=== PATIENT | female | born 1975 | race Caucasian/White ===

== ENCOUNTER → 2019-04-24 | Outpatient (CLI) | payer OTHER ==
[2019-04-24 13:55] LABS: BILIRUBIN,URINE NEGATIVE (NEG); CLARITY,URINE CLEAR; COLOR,URINE YELLOW; NITRITE,URINE NEGATIVE (NEG); PROTEIN,URINE NEGATIVE (NEG-TRACE); UROBILINOGEN,URINE 0.2 mg/dL (0.2 mg/dL)
[2019-04-24 14:06] LABS: BACTERIA,URINE FEW /HPF (0-FEW); RBC,URINE OCC /HPF (0-2); SQUAMOUS EPITHELIAL CELL,UR MANY /LPF; WBC,URINE RARE /HPF (0-4)
[2019-04-24 15:04] LABS: BASO # 0.1 x10^3/uL (0.0-0.2); BASO % 1 % (0-3); EOS # 0.2 x10^3/uL (0.0-0.7); EOS % 3 % (0-3); HEMATOCRIT 39.5 % (36.0-47.0); HEMOGLOBIN 13.5 g/dL (12.0-15.5); LYMPH % 29 % (24-48); MEAN CORPUSCULAR HEMOGLOBIN 28 pg (25-35); MEAN CORPUSCULAR HGB CONC 34 g/dL (31-37); MEAN CORPUSCULAR VOLUME 83 fL (79-100); MONO # 0.5 x10^3/uL (0.0-1.1); MONO % 8 % (0-9); NEUT % 59 % (31-73); PLATELET COUNT 305 x10^3/uL (140-400); RED BLOOD COUNT 4.75 x10^6/uL (3.50-5.40); RED CELL DISTRIBUTION WIDTH 13.3 % (11.5-14.5); WHITE BLOOD COUNT 6.7 x10^3/uL (4.0-11.0)
[2019-04-24 15:31] LABS: ALBUMIN 3.8 g/dL (3.4-5.0); CALCIUM 9.1 mg/dL (8.5-10.1); CREATININE 0.7 mg/dL (0.6-1.0); GFR 90.5; POTASSIUM 3.7 mmol/L (3.5-5.1); TOTAL BILIRUBIN 0.3 mg/dL (0.2-1.0); TOTAL PROTEIN 7.5 g/dL (6.4-8.2)
== END | disposition home or self-care (01) ==
LOC: SURGPAT 13:35
PROVIDERS: ATTEND Obstetrics & Gynecology
DX: Z01.818 Encounter for other preprocedural examination (principal); D25.9 Leiomyoma of uterus, unspecified; N92.4 Excessive bleeding in the premenopausal period
CPT/HCPCS: 36415; 80053; 81001; 85025

== ENCOUNTER 2019-04-26 05:42 | Observation (INO) | payer OTHER ==
[~2019-04-26] VITALS: Ht 162.6 cm; Wt 87.0 kg
[2019-04-26] MEDS ORDERED: ONDANSETRON PF 4 MG/2 ML VIAL. ONE (06:33)
[2019-04-26] MEDS ORDERED: LIDOCAINE 2% PF 5 ML VIAL. ONE (06:33)
[2019-04-26] MEDS ORDERED: PROPOFOL 20 ML IV ONE (06:33)
[2019-04-26] MEDS ORDERED: ROCURONIUM 50 MG/5 ML VIAL. ONE ×2 (06:33→11:48)
[2019-04-26] MEDS ORDERED: DEXAMETHASONE SOD PHOS 4 MG/ML VIAL ONE (06:33)
[2019-04-26] MEDS ORDERED: fentaNYL PF VIAL 100 MCG/2 ML VIAL IV PRN ×2 (07:00)
[2019-04-26] MEDS ORDERED: IV RINGERS,LACTATED 1000ML 1,000 ML IV SCH (07:00)
[2019-04-26] MEDS ORDERED: HYDROmorphone 2 MG/ML VIAL IV PRN (07:00)
[2019-04-26] MEDS ORDERED: PROCHLORPERAZINE 10 MG/2 ML VIAL. IV PRN (07:00)
[2019-04-26] MEDS ORDERED: ONDANSETRON PF 4 MG/2 ML VIAL. IV PRN ×2 (07:00→13:00)
[2019-04-26] MEDS ORDERED: MORPHINE SULFATE 2 MG/ML VIAL. IV PRN ×2 (07:00→13:00)
[2019-04-26] MEDS ORDERED: ESTROGENS, CONJ VAGINAL CREAM 30GM TUBE. ONE (07:19)
[2019-04-26] MEDS ORDERED: BUPIVACAINE-EPI 0.25%-1:200000 MPF 30 ML VIAL. ONE (07:19)
[2019-04-26] MEDS ORDERED: INDIGOTINDISULFONATE SODIUM 40 MG/5 ML AMPUL. ONE (07:20)
[2019-04-26] MEDS ORDERED: SUCCINYLCHOLINE 200 MG/10 ML VIAL. ONE (07:24)
[2019-04-26] MEDS ORDERED: fentaNYL PF VIAL 100 MCG/2 ML VIAL ONE ×3 (07:25→09:17)
[2019-04-26] MEDS ORDERED: MIDAZOLAM HCL/PF 2 MG/2 ML VIAL. ONE (07:25)
[2019-04-26] MEDS ORDERED: GLYCOPYRROLATE 1 MG/5 ML VIAL. ONE (07:58)
[2019-04-26] MEDS ORDERED: NEOSTIGMINE METHYLSULFATE 5 MG/5 ML SYRINGE. ONE (07:59)
[2019-04-26] MEDS ORDERED: KETOROLAC 30 MG/ML VIAL. ONE (08:03)
[2019-04-26] MEDS ORDERED: ePHEDrine PF IN SALINE 50 MG/10 ML SYRINGE. IV ONE (08:50)
[2019-04-26] MEDS ORDERED: ceFAZolin 2GM PREMIX 2 GM/50 ML BAG IV ONE (09:00)
[2019-04-26] MEDS ORDERED: SEVOFLURANE > 120 MINUTES. IH ONE (09:11)
[2019-04-26] MEDS ORDERED: ESMOLOL 100 MG/10 ML VIAL. IVP ONE (10:19)
[2019-04-26] MEDS ORDERED: HYDROmorphone 2 MG/ML VIAL ONE (12:01)
[2019-04-26] MEDS ORDERED: PHENYLEPHRINE in 0.9% NACL PF 1 MG/10 ML SYRINGE. IV ONE (12:02)
--- NOTE | 2019-04-26 12:58 | PDOC ---
BRIEF OPERATIVE NOTE Date: Apr 26, 2019 Pre-Op Diagnosis menorrhagia, dysmenorrhea Post-Op Diagnosis same plus a fibroid and extensive pelvic adhesive disease Procedure Performed LAVH/LSO/right salpingectomy/extensive adhesiolysis > 3hrs on adhesions alone Surgeon Dr. Philomena Blnaca Drain Cleaner OSVALDO Nation Anesthesiologist Dr. Benedict Anesthesia Type: General Blood Loss 200cc IV Fluid 1700cc Urine Output 600cc clear via loera catheter Specimens Obtained cervix, uterus, left tube and ovary, right tube Findings uterus adhesed thickly to anterior abdominal wall, enlarged left tube like hydrosalpinx, colon adhesed to left sidewall, left IP ligament, left ovary and left pelvic sidewall, bladder adhesed to anterior abdominal wall, normal right tube/ovary, normal appearing appendix and RUQ, fibroid on right, anterior, fundal part of uterus Complications none Operative Note [id number] PHILOMENA BLANCA MD Apr 26, 2019 12:58
[2019-04-26] MEDS ORDERED: ZOLPIDEM 5 MG TABLET. PO PRN (13:00)
[2019-04-26] MEDS ORDERED: SIMETHICONE 80 MG TAB.CHEW PO PRN (13:00)
[2019-04-26] MEDS ORDERED: 0.9 % SODIUM CHLORIDE 10 ML DISP.SYRIN. IV PRN (13:00)
[2019-04-26] MEDS ORDERED: CALCIUM CARBONATE 500 MG TAB.CHEW PO PRN (13:00)
[2019-04-26] MEDS ORDERED: diphenhydrAMINE HCL 25 MG CAPSULE PO PRN (13:00)
[2019-04-26] MEDS ORDERED: LACTULOSE 20 GM/30 ML SOLUTION. PO PRN (13:00)
[2019-04-26] MEDS ORDERED: MAGNESIUM HYDROXIDE 2,400 MG/30 ML ORAL.SUSP. PO PRN (13:00)
[2019-04-26] MEDS ORDERED: MAG HYDROX/ALUMINUM HYD/SIMETH 30 ML ORAL.SUSP PO PRN (13:00)
[2019-04-26] MEDS ORDERED: HYDROcodone/APAP 5/325MG 1 TAB TABLET PO PRN (13:00)
[2019-04-26] MEDS ORDERED: diphenhydrAMINE 50 MG/ML VIAL IV PRN (13:00)
[2019-04-26] MEDS ORDERED: NALOXONE 0.4 MG/ML VIAL. IV PRN (13:00)
[2019-04-26] MEDS: HYDROmorphone 2 MG/ML VIAL IV PRN ×4 (13:31→14:01)
--- NOTE | 2019-04-26 14:35 | OP ---
DATE OF SURGERY: 04/26/2019 PREOPERATIVE DIAGNOSES: Menorrhagia, dysmenorrhea. POSTOPERATIVE DIAGNOSES: Menorrhagia, dysmenorrhea with fibroid and extensive pelvic adhesive disease. PROCEDURES: Laparoscopic-assisted vaginal hysterectomy, left salpingo-oophorectomy, right salpingectomy, extensive adhesiolysis, greater than 3 hours alone was spent on adhesions alone. She had both bowel adhesions to the sidewall, to the left infundibulopelvic ligament, to the left ovary and the left pelvic sidewall with all adhesed as well as the uterus was completely scarred to the anterior abdominal wall with the bladder behind it, so greater than 3 hours alone was spent on the adhesions. SURGEON: John Blanca MD FUR BLOWING MACHINE OPERATOR: Frank Maradiaga criminal legal assistant. ANESTHESIOLOGIST: Dr. Benedict. ANESTHESIA: General. ESTIMATED BLOOD LOSS: 200 mL. URINE OUTPUT: 600 mL clear via Portillo catheter. INTRAVENOUS FLUIDS: 1700 mL of Crystalloid. SPECIMENS: Cervix, uterus, left tube and ovary, right tube. FINDINGS: She had the uterus that was thickly scarred and adhesed to the anterior abdominal wall with the bladder behind it. She had an enlarged left tube like a hydrosalpinx and she had scarring all along the left sidewall with colon adhesed to the sidewall, the left infundibulopelvic ligament, the left ovary and the left pelvic sidewall as well. Of course, the bladder was scarred behind the uterus likely from her 4 prior sections and told she had a uterine window and then she had a normal right tube and ovary and a visually normal appendix and a grossly normal right upper quadrant or liver edge. COMPLICATIONS: None. DESCRIPTION OF PROCEDURE: This patient was taken to the operating room where general anesthesia was placed. The patient was placed in the dorsal lithotomy position in [facility]. The patient's abdomen and vagina were both prepped and draped in the normal sterile fashion and a Portillo catheter had been inserted under sterile technique prior to my arrival. Upon my arrival, a timeout was performed in which everyone agreed on the patient, the procedure and she had received her preoperative antibiotics and a Portillo catheter was indeed in place. Once this was all agreed upon, a bivalve speculum was placed in the patient's vagina. A single-tooth tenaculum was used to grasp the anterior lip of the cervix. A 12 mL of 0.25% Marcaine with epinephrine was used to circumferentially inject around the cervix for both hemodissection and hemostatic purposes later. The [employer] Prototype uterine manipulator was placed through the endocervical os, locked on the single tooth tenaculum and the bivalve speculum was then removed. Top gloves were discarded and changed. Attention was then turned to the abdomen where a supraumbilical skin incision was made with the scalpel. A curved Ana was used to dissect through the subcuticular layer to the fascia. The 5 mm Visiport was used to directly into the abdominal cavity. Direct abdominal placement was confirmed via the laparoscope. Opening patient pressure was 3-4 mmHg. The patient was placed in Trendelenburg position. The overhead lights were dimmed and the right lower quadrant port was placed under direct visualization transilluminating the abdominal wall, finding an area clear of any vasculature, making a small incision and placing the 5 mm disposable trocar under direct visualization without difficulty. A 4-5 mL of air was placed in the trocar cuff. The scope was then moved to this port to look the umbilical port. It was in with no adhesions so the trocar cuff was also filled with the 4-5 mL of air here. The left lower quadrant was placed under direct visualization exactly the same as the right. Finding an area clear of any adhesions which they were not warranted any here by transilluminating the abdominal wall, making a small incision in the abdomen and placing the trocar under direct visualization and filling the trocar cuff with 4-5 mL of air. At this point, all the above findings were seen with the most significant thing being the left-sided adhesions and the uterus firmly adhesed to the anterior abdominal wall. So, I started on the left, I was able to take down the bowel pretty easily off the sidewall. I was able to grasp the left tube and ovary and peeled the bowel off the left ovary. I then had to peel it off the infundibulopelvic ligaments so we could identify the ureter, which I was actually able to find. I could see the distal part on the other side of the pelvic adhesion, but I needed to see the proximal part because she wanted to retain one ovary since the left tube and ovary looked more scarred and swollen like the hydrosalpinx on this side. I decided to leave her normal right ovary and take the scarred left ovary. So I worked on taking down the adhesions on the left side, once I was able to identify the ureter crossing over the IP ligament and diving deep into the pelvis. I was able to stay high on the IP ligament and take out the swollen left tube as well with hydrosalpinx, crossing the left infundibulopelvic ligament with the LigaSure, cauterizing and cutting, taking the left tube and ovary. I was able to cross the left round ligament as well. The uterus was still scarred at this point, but I was able to take down this and obtain blood supply, so I just went one step trying to secure the blood supply the whole time. The right tube and ovary were normal. I was able to identify the ureter, but they were normal so I went above the ovary below the tube, doing a right salpingectomy and then crossing the right round ligament and the right uterine ovarian pedicle, so leaving the unilateral ovary and taking unilateral ovary. At this point, I was able to especially on the left see around the adhesions and I was able to come out it from the side and below, so I made sure I was not just going through anteriorly and not knowing if that bladder was behind it. So, it took several times and I kept going around it from one side to the other, but instead of approaching it straight on from the fundus down, not knowing where that bladder would be after 4 cesareans, so that is what took so long, just approaching it and then I used the suction as blunt dissection once I would score it, I would take down some blunt hemodissection and then looked around and came out it from the other side and do it again, so it took a long time to work on this anterior abdominal wall adhesion. After going through the round ligament on the left side and starting the anterior abdominal wall adhesions see the bladder flap on this side, I could watch it come up so i still want to go at it straight on, but i was able to push in vaginally on the cervix and uterus and elongate that cervix and go down that side obtaining the uterine vessels and going down to the uterosacral so I was able to skeletonize and obtain the blood supply on the left side of the uterus before I started working on the adhesions, which was very helpful. Once I was able to get further on the right side, I was able to see the uterines on this side as well. There was a fibroid obscuring the view on this side initially, but I was able to skeletonize and almost peel off and almost remove it, it was still attached, but the fibroid, so I could get below it and see where the uterines were and I was able to get the uterines on this side as well. At this point, the uterus was completely blanched, posteriorly I was free. I was just still stuck anteriorly. Left side was free, posterior looked good. I just was still stuck anteriorly. So I still took my time taking it down, but I had the uterine vessels on both sides and once I was able to then keep going from each side. Once the right side was taken down, I took a little bites through the cardinal and broad ligaments down to the level of the uterosacral on the right side as well. Again, uterus blanching completely free in the back and on the sides just still working on that anterior adhesion until eventually I was able to get around it and just cut the rest of it, the whole anterior surface of the uterus and I mean whole anterior surface looked like raw hamburger meat and had been stuck to the anterior abdominal wall. Once it was free, there was no active bleeding and I took pictures of everything and all instruments were removed and attention was turned down below. The single tooth had already kind of come off during the manipulation, it was removed. Weighted speculum was placed in the patient's vagina. Thyroid Faustina clamps were placed on the anterior and posterior lips of the cervix respectively. A scalpel was used to make a circumferential incision in the cervix. Posterior cul-de-sac was easily and sharply entered with curved Asher scissors. A #0 Vicryl stitch was used to secure the posterior peritoneum here to the vaginal cuff and tagged with a curved Ana clamp and the needle was cut and passed off. The short weighted vaginal speculum was removed and replaced with the long weighted Milvia speculum in the posterior cul-de-sac. I was able to skeletonize and take down some of the anterior bladder adhesions. There was still more adhesions here. Using the suction Yankauer tip to gently push up and skeletonizing it with the scalpel and then I used an open Ray-Nancy 4 x 4 to gently push up. It released easily on the left side and the right side, still stuck a tiny bit in the middle, but I was able to get the right angle clamp around the whole left side and I double clamped with curved Heaneys x 2. It was cut with curved Asher scissors and suture ligated x 2 with 0 Vicryl. Second one was taken through the vaginal cuff securing uterosacral ligament to the vaginal cuff and was tagged with a straight Ana clamp. I could not get around it initially on the right side, there was a little more. So, I double clamped it with the uterosacral with curved Heaneys x 2, cut with Asher scissors, suture ligating x 2 with #0 Vicryl, again the second one was taken through the vaginal cuff securing uterosacral ligament to the vaginal cuff and tagging it with a straight Ana clamp. At this point, I was able to gently push up on that side even more. I was able to get a right angle clamp around it and I used the vaginal LigaSure to cauterize and cut the remaining pedicle on the right side. At this point, the entire right side was free. I was able to take down that anterior bladder adhesion under direct visualization or on the cervix, the low cervix adhesion and there was one tiny pedicle left on the left side that I was able to get the right angle clamp around and the vaginal LigaSure was used to cauterize and cut this as well. Once this was done, the cervix, uterus, left tube and ovary, right tube and fibroid were all delivered in total and passed off for permanent pathology. I was not able to get high enough to see the bladder peritoneum just there were lots of adhesions, so I was able to get in though and looked at it and make sure it was hemostatic, put the curved Robert in. I just grabbed the edge of it, I was able to look at the right and left uterosacral and the pedicles those were hemostatic. I removed the long weighted speculum from the posterior cul-de-sac and replaced it with the short weighted vaginal speculum and examined it, everything appeared to be hemostatic. So at this point, 2-0 Vicryl was taken through the anterior edge, left uterosacral ligament, posterior peritoneum and right uterosacral ligament, thus attempting to close the peritoneum in a pursestring like fashion. Once this was done, the right and left uterosacral tags were clipped as well. The cuff was closed in an anterior to posterior running locked fashion with a full length 2-0 Vicryl and tied to that posterior cuff tag. Once it was completely closed and tied and the needle was cut and passed off. A sponge stick was used to examine the vagina and it was completely hemostatic. All instruments were removed from the vagina. Before going above, all sponge, lap and needle counts were correct x 2 by OR personnel. Attention was then turned back above for a second look was obtained. Everything was hemostatic. Copious irrigation revealed hemostasis. The right and left pericolic gutters were clear. I looked at the right upper quadrant again, the appendix was normal. The cuff was good. She still had the normal right ovary. Everything else was removed. I placed Tisseel over the vaginal cuff and the ovarian pedicles and then I obtained Ludmila to place over the anterior abdominal wall where the adhesiolysis was performed. Once this was done, the right and left lower quadrant ports, the gas was taken out of the trocar, the air and these were removed under direct visualization, they were completely hemostatic. The cul-de-sac remained dry. The gas was removed from the umbilical one as well once the air was removed from the abdomen, it was removed. All three port sites were closed with 4-0 nylon at the skin and injected with 12 mL of 0.25% Marcaine with epinephrine. The patient was then awakened from anesthesia, extubated and brought to recovery room in stable condition. JOHN BLANCA MD DR: PAUL/troy JOB#: [id number] / [id number]
[2019-04-26 15:20] VITALS: BP 106/63
[2019-04-26] MEDS: oxyCODONE/APAP 5/325 1 TAB TABLET PO PRN ×2 (18:46→23:50)
[2019-04-26 20:00] VITALS: BP 110/71
[2019-04-27] VITALS: BP 95/49
[2019-04-27 05:00] VITALS: BP 95/56
[2019-04-27] MEDS: oxyCODONE/APAP 5/325 1 TAB TABLET PO PRN ×2 (06:36→11:17)
--- NOTE | 2019-04-27 08:56 | PDOC ---
SURGICAL PROGRESS NOTE Subjective Doing well without complaints. Scant VB, ambulating well, voiding without catheter, tolerating regular diet and wanting to go home today Vital Signs Vital Signs Date Time Temp Pulse Resp B/P (MAP) Pulse Ox O2 Delivery O2 Flow Rate FiO2 04/27/19 06:36 16 Room Air 04/27/19 05:00 99.0 95/56 (69) 96 99.0 04/27/19 00:00 121 04/26/19 15:20 2.0 I&O Intake and Output 04/27/19 07:00 Intake Total 2280 ml Output Total 800 ml Balance 1480 ml Intake Oral 380 ml IV Total 1900 ml Output Urine Total 600 ml Estimated Blood Loss 200 ml # Voids 2 PATIENT HAS A SANDERS: No General: Alert, Oriented X3, Cooperative, No acute distress HEENT: Atraumatic Abdomen: Normal bowel sounds, Soft, No tenderness, Other (all port sites c/d/i with bandages) Extremities: No clubbing, No cyanosis, No edema, No tenderness/swelling, Other (neg homans, SCDs in place) Skin: No rashes, No breakdown Neuro: Normal speech Psych/Mental Status: Mental status NL, Mood NL Labs Laboratory Tests Test 04/26/19 06:11 Bedside Urine HCG, Qualitative Hcg negative (Negative) I have reviewed the following labs, vitals, nursing Cardiovascular: No pertinent hx Pulmonary: No pertinent hx GI: No pertinent hx Heme/Onc: No pertinent hx Psych: No pertinent hx Rheumatologic: No pertinent hx Infectious disease: No pertinent hx ENT: No pertinent hx Assessment/Plan POD#1 s/p LAVH/LSO/right salpingectomy and extensive adhesiolysis Routine PO care labs just now being drawn and not back yet, but pending labs ok, ok to d/c to home later today NPV x 6 weeks Light/limited activity x 2 weeks keep scheduled follow up with me in 1 week ok for OTC ibuprofen percocet written call or return sooner for any other questions or concerns not limited to but including pain unrelieved with pain meds, increased or unexplained vaginal blee ding or T>100.4 JOHN RAMOS MD Apr 27, 2019 08:56
--- NOTE | 2019-04-27 09:01 | PDOC3 ---
Discharge Summary Visit Information Date of Admission: Apr 26, 2019 Date of Discharge: Apr 27, 2019 Final Diagnosis pelvic pain, menorrhagia, extensive pelvic adhesive disease Brief Hospital Course Allergies Allergies Coded Allergies Type Severity Reaction Last Updated Verified No Known Drug Allergies 04/26/19 No Vital Signs Vital Signs Date Time Temp Pulse Resp B/P (MAP) Pulse Ox O2 Delivery O2 Flow Rate FiO2 04/27/19 06:36 16 Room Air 04/27/19 05:00 99.0 95/56 (69) 96 99.0 04/27/19 00:00 121 04/26/19 15:20 2.0 Lab Results Laboratory Tests Test 04/26/19 06:11 Bedside Urine HCG, Qualitative Hcg negative (Negative) Brief Hospital Course Ms. Kimball is a 43 old [sex] who presented with [ ] Assessment Assessment POD#1 s/p LAVH/LSO/right salpingectomy and extensive adhesiolysis Routine PO care labs just now being drawn and not back yet, but pending labs ok, ok to d/c to home later today NPV x 6 weeks Light/limited activity x 2 weeks keep scheduled follow up with me in 1 week ok for OTC ibuprofen percocet written call or return sooner for any other questions or concerns not limited to but including pain unrelieved with pain meds, increased or unexplained vaginal bleeding or T>100.4 Discharge Information Condition at Discharge: Stable Follow Up: Weeks Disposition/Orders: D/C to Home Scheduled Info (No Known Medications Prior To Admisstion) Each, 1 TAB MC DAILY for no meds, (Reported) Entered as Reported by: YOLANDA MARTINEZ on 04/24/19 7634 Last Action: HELD on 04/26/19 0736 by JOHN RAMOS Patient Instructions Patient Instructions POD#1 s/p LAVH/LSO/right salpingectomy and extensive adhesiolysis Routine PO care labs just now being drawn and not back yet, but pending labs ok, ok to d/c to home later today NPV x 6 weeks Light/limited activity x 2 weeks keep scheduled follow up with me in 1 week ok for OTC ibuprofen percocet written call or return sooner for any other questions or concerns not limited to but including pain unrelieved with pain meds, increased or unexplained vaginal bleeding or T>100.4 Hemodynamically unstable?: No Operative site or wounds?: Yes Poss blood loss?: Yes Persistent Pain & Nausea?: No JOHN RAMOS MD Apr 27, 2019 09:01
[2019-04-27 09:09] VITALS: BP 106/58
[2019-04-27 09:25] LABS: CALCIUM 8.3 mg/dL (8.5-10.1); CREATININE 0.9 mg/dL (0.6-1.0); GFR 67.7; POTASSIUM 3.9 mmol/L (3.5-5.1)
[2019-04-27 11:15] VITALS: BP 102/65
--- NOTE | 2019-04-27 11:25 | NUR ---
Discharge Note: AMALIA HALL Discharge instructions and discharge home medications reviewed with Patient and a copy given. All questions have been answered and understanding verbalized. follow-up appointments reviewed. The following instructions and handouts were given: Salpingectomy, Hysterectomy, Unilateral Salpingo-Oophorectomy, Hysterectomy Information. Discontinued lines and drains: peripheral IV removed from left hand. Patient discharged to home with self-care via WC to private vehicle. Pt. spouse at bedside for discharge teaching. Patient and patient's spouse stated prescriptions were given to the patient's spouse 04/26/2019.
--- NOTE | 2019-04-30 13:07 | PATHOLOGY ---
[facility] Accession Number: [id number] . 01 Material submitted: . uterus - UTERUS,CERVIX,LEFT TUBE AND OVARY . 01 Clinical history: . None provided . 02 Diagnosis: "Uterus, left tube and ovary", removal: - Cervix with moderate acute and chronic inflammation, squamous metaplasia, and endocervical polyp (1.8 cm). - Proliferative phase endometrium. - Myometrium with leiomyoma, 3.5 cm; adenomyosis. - Serosal surface with focal fibrous adhesions. - Left ovary with simple cysts. - Left fallopian tube with dilated lumen (1.5 cm) - Right fallopian tube with no pathologic diagnosis. . ([facility]:mm; 04/30/2019) [facility] 04/30/2019 1047 Local . 02 Electronically signed: . Santana Montero MD, Pathologist NPI- [id number] . 01 Gross description: . The specimen is received in formalin labeled "Lesa Kimball, uterus, cervix, left tube and ovary". Received is a 104 g, 9.5 x 5.2 x 3.1 cm uterus with attached cervix, attached left adnexa weighing 14 g, and attached right fallopian tube weighing 3 g. The uterine serosa is completely absent on the anterior aspect. On the posterior aspect, the serosa is pink-zhang in appearance with a moderate amount of overlying adhesions. The 1.2 cm cervical os is surrounded by pale zhang, smooth to disrupted ectocervical mucosa. The uterus is oriented using the peritoneal reflection and the anterior paracervical margin is inked black. The uterus is opened laterally to reveal a pale zhang, corrugated endocervical canal measuring 3.0 cm in length. In the posterior aspect of the endocervical canal, there is a light brown polyp identified measuring 1.8 x 0.8 x 0.3 cm. The polyp is removed and the new margin is inked black. The endometrial cavity is tear-drop shaped measuring 5.0 cm in length by 2.0 cm in width. The endometrium is light brown, shaggy in appearance and measures 0.1 cm in thickness. A zhang-pink, trabeculated myometrium measuring up to 2.5 cm in thickness displaying a loosely attached presumed intramural fibroid measuring 3.5 cm in maximum dimensions. . The left adnexa consists of a non-fimbriated edematous fallopian tube measuring 4.1 cm in length by up to 1.5 cm in diameter attached to a 2.5 x 1.8 x 1.8 cm cystic ovary. Sectioning through the fallopian tube reveals a dilated lumen filled with blood-tinged fluid. Sectioning through the ovary reveals multiple cystic structures ranging in size from 0.3 to 1.6 cm filled with yellow serous fluid. The remaining cut surfaces display pale zhang, normal ovarian stroma. . The right fimbriated fallopian tube measures 7.8 cm in length by 0.5 cm in diameter. Sectioning reveals a pinpoint to patent lumen. The specimen is submitted representatively as follows: . A1 12:00 cervix A2 6:00 cervix A3 serosal adhesions A4 endocervical polyp, bisected A5 anterior endomyometrium A6 posterior endomyometrium A7 corporate representative sections of fibroid A8-A9 left adnexa A10 right fallopian tube. ([facility]; 04/27/2019) [facility] 04/30/2019 1044 Local . 02 Pathologist provided ICD-10: N72, D25.9, N80.0, N83.202 . 02 CPT . 721949 Specimen Comment: A courtesy copy of this report has been sent to [phone], [phone] Specimen Comment: [id number] Specimen Comment: Report sent to / DR TELLES Performed at: 01 [facility] [address], [place] [id number] MD Isai Garcia MD Phone: [phone] Performed at: 02 [facility] [address] [place], [place] [id number] MD Wayne Hoff MD Phone: [phone]
== END 2019-04-27 11:20 | disposition home or self-care (01) ==
LOC: SURG 05:42 → EDUNIT# 07:30 → 3 NORTH 13:00 → INTOOBSV 13:00
PROVIDERS: ADMIT Obstetrics & Gynecology; ATTEND Obstetrics & Gynecology
DX: N92.0 Excessive and frequent menstruation with regular cycle (principal); N94.6 Dysmenorrhea, unspecified; D25.9 Leiomyoma of uterus, unspecified
CPT/HCPCS: 36415; 58552; 80048; 81025; 85014; 86850; 86900; 86901; 86920; 88307; 96374; 96375; A7015; G0378; G0379; J0171; J0330; J0696; J1100; J1170; J2001; J2250; J2270; J2370; J2405; J2704; J2710; J3010; J3490; J7030; J1885